=== PATIENT | male | born 1995 | race Caucasian/White ===

== ENCOUNTER 2018-12-04 17:13 | Emergency (ER) | payer MEDICAID ==
[~2018-12-04] VITALS: Ht 175.3 cm; Wt 81.6 kg
[2018-12-04 17:24] VITALS: BP 147/89
== END 2018-12-04 23:13 | disposition home or self-care (01) ==
LOC: ER 17:13
DX: S63.502A Unspecified sprain of left wrist, initial encounter (principal); V29.9XXA Motorcycle rider (driver) (passenger) injured in unspecified traffic accident, initial encounter; Y93.55 Activity, bike riding; Y92.488 Other paved roadways as the place of occurrence of the external cause; Y99.8 Other external cause status
CPT/HCPCS: 29125; 73110; 73130; 73200

== ENCOUNTER 2019-03-24 12:46 | Emergency (ER) | payer MEDICAID ==
[~2019-03-24] VITALS: Ht 165.1 cm; Wt 83.9 kg
[2019-03-24 13:00] VITALS: BP 128/66
== END 2019-03-24 14:03 | disposition home or self-care (01) ==
LOC: ER 12:46
DX: L20.9 Atopic dermatitis, unspecified (principal); D17.39 Benign lipomatous neoplasm of skin and subcutaneous tissue of other sites

== ENCOUNTER 2021-08-21 07:14 | Emergency (ER) | payer SELFPAY ==
[~2021-08-21] VITALS: Ht 165.1 cm; Wt 83.9 kg
[2021-08-21 07:33] VITALS: BP 137/85
[2021-08-21] MEDS ORDERED: IBUPROFEN 800 MG TAB PO ONE (07:45)
== END 2021-08-21 07:58 | disposition home or self-care (01) ==
LOC: ER 07:14
DX: K02.9 Dental caries, unspecified (principal)